=== PATIENT | female | born 1940 | race Caucasian/White ===

== ENCOUNTER 2017-05-26 19:11 | Emergency (ER) | payer MEDICARE, BC ==
[~2017-05-26] VITALS: Ht 154.9 cm; Wt 70.0 kg
[~2017-05-26 19:11] MED LIST: CHOL2000 PO; DOCU-28 PO; DONE10TA44 PO; MULT1TAB74 PO; OMEP40CA37 PO; POLY17PO10 PO; RASA1TAB PO; SYN0.112T PO; TRIH2TAB3 PO; ZOC40T PO
[2017-05-26 20:56] VITALS: BP 112/65
== END 2017-05-26 20:58 | disposition home or self-care (01) ==
LOC: ER 19:11
DX: G20 Parkinson's disease (principal); F02.80 Dementia in other diseases classified elsewhere, unspecified severity, without behavioral disturbance, psychotic disturbance, mood disturbance, and anxiety; R52 Pain, unspecified; Z99.3 Dependence on wheelchair; I10 Essential (primary) hypertension; J44.9 Chronic obstructive pulmonary disease, unspecified; E78.00 Pure hypercholesterolemia, unspecified; E03.9 Hypothyroidism, unspecified; Z98.890 Other specified postprocedural states; Z88.5 Allergy status to narcotic agent; Z79.899 Other long term (current) drug therapy; W05.0XXA Fall from non-moving wheelchair, initial encounter; Y93.89 Activity, other specified; Y92.89 Other specified places as the place of occurrence of the external cause; Y99.8 Other external cause status
CPT/HCPCS: 99284